=== PATIENT | male | born 1960 | race Caucasian/White ===

== ENCOUNTER 2017-06-13 11:27 | Outpatient (CLI) | payer OTHER ==
[2017-06-13 12:16] LABS: Hemoglobin A1c 6.7 % (4.0-6.0)
== END 2017-06-13 11:28 | disposition home or self-care (01) ==
LOC: HPCALD 11:27
PROVIDERS: ATTEND Family Medicine
DX: Z12.5 Encounter for screening for malignant neoplasm of prostate (principal); E11.9 Type 2 diabetes mellitus without complications
CPT/HCPCS: 36415; 83036; G0103